=== PATIENT | female | born 1990 ===

== ENCOUNTER 2018-05-27 15:37 | Emergency (ER) | payer OTHER ==
[~2018-05-27] VITALS: Ht 175.3 cm; Wt 77.1 kg
--- NOTE | 2018-05-27 15:44 | NUR ---
KOBE TRIPLETT AT THE BEDSIDE FOR MSE.
[2018-05-27] MEDS ORDERED: ACETAMINOPHEN ES 500 MG TABLET ONE (15:51)
[2018-05-27] MEDS ORDERED: ACETAMINOPHEN ES 500 MG TABLET PO ONE (16:00)
--- NOTE | 2018-05-27 17:01 | NUR ---
Patient discharged to home in stable conditon. Written and verbal after care instructions given. Patient verbalizes understanding of instructions. Pt left ER w/ steady gait accompained by family.
[2018-05-27 17:02] VITALS: BP 124/88
== END 2018-05-27 17:05 | disposition home or self-care (01) ==
LOC: ER 15:39
DX: S01.81XA Laceration without foreign body of other part of head, initial encounter (principal); S13.4XXA Sprain of ligaments of cervical spine, initial encounter; V49.9XXA Car occupant (driver) (passenger) injured in unspecified traffic accident, initial encounter; Y93.89 Activity, other specified; Y92.410 Unspecified street and highway as the place of occurrence of the external cause; Y99.8 Other external cause status
CPT/HCPCS: 12011; 70450; 72050; 99284; A4217; A4663; A9150